=== PATIENT | male | born 1965 | race Caucasian/White ===

== ENCOUNTER 2020-12-07 19:53 | Emergency (ER) | payer BC ==
--- NOTE | 2020-12-07 20:26 | EDM.PDOC ---
ED HPI GENERAL MEDICAL PROBLEM - General Chief Complaint: Cardiovascular Problem Stated Complaint: BLOOD PRESSURE Time Seen by Provider: 12/07/20 19:56 Source of Information: Reports: Patient History Limitations: Reports: No Limitations - History of Present Illness INITIAL COMMENTS - FREE TEXT/NARRATIVE: Patient is a 55-year-old male who presents today for concerns of elevated blood pressure. Patient says at home his blood pressure is 160/110 and he spoke to his sister who also usp coming for evaluation. Patient himself states that he feels fine he has no chest pain confusion vision changes or urinary symptoms. Patient is he has appointment tomorrow to see his PMD for blood pressure checkup. Patient states blood pressure elevated a year ago but has been walking exercise and looks well controlled persistent has gone up today in the ER is 145/93. - Related Data Allergies Allergy/AdvReac Type Severity Reaction Status Date / Time No Known Allergies Allergy Verified 12/07/20 20:19 Home Meds: Home Meds . [No Known Home Meds] 12/07/20 [History] Past Medical History Cardiovascular History: Reports: Other (See Below) Other Cardiovascular History: "borderline HTN" - Infectious Disease History Infectious Disease History: Reports: None Social & Family History - Family History Family Medical History: No Pertinent Family History - Recreational Drug Use Recreational Drug Use: No ED ROS GENERAL - Review of Systems Review Of Systems: See Below Constitutional: Reports: No Symptoms HEENT: Reports: No Symptoms Respiratory: Reports: No Symptoms Cardiovascular: Reports: No Symptoms Endocrine: Reports: No Symptoms GI/Abdominal: Reports: No Symptoms : Reports: No Symptoms Musculoskeletal: Reports: No Symptoms Skin: Reports: No Symptoms Neurological: Reports: No Symptoms Psychiatric: Reports: No Symptoms Hematologic/Lymphatic: Reports: No Symptoms Immunologic: Reports: No Symptoms ED EXAM, GENERAL - Physical Exam Exam: See Below Exam Limited By: No Limitations General Appearance: Alert, WD/WN, No Apparent Distress Eye Exam: Bilateral Eye: EOMI, PERRL Neck: Normal Inspection Respiratory/Chest: No Respiratory Distress, Lungs Clear, Normal Breath Sounds Cardiovascular: Normal Peripheral Pulses, Regular Rate, Rhythm GI/Abdominal: Normal Bowel Sounds, Soft, Non-Tender Extremities: Normal Inspection, Normal Range of Motion Neurological: Alert, Oriented, CN II-XII Intact, Normal Cognition, Normal Gait Course - Vital Signs Last Recorded V/S: Last Vital Signs Temp 97.1 F 12/07/20 20:17 Pulse 70 12/07/20 20:17 Resp 16 12/07/20 20:17 BP 143/95 H 12/07/20 20:17 Pulse Ox 96 12/07/20 20:17 - Orders/Labs/Meds Orders: Active Orders 24 hr Category Date Time Status EKG 12 Lead [EKG Documentation Completion] [RC] STAT Care 12/07/20 20:23 Active - Re-Assessments/Exams Free Text/Narrative Re-Assessment/Exam: 12/07/20 20:49 Patient eloped before his EKG to be completed. We attempted to call patient patient did not case picker the phone. Again patient does have appointment tomorrow with his PMD. Departure - Departure Time of Disposition: 20:25 Disposition: Eloped 07 Condition: Good Clinical Impression: Asymptomatic hypertension Instructions: Hypertension, Adult, [id number] Referrals: Cesilia Olsen MD [Primary Care Provider] - Forms: ED Department Discharge Additional Instructions: The following information is given to patients seen in the emergency department who are being discharged to home. This information is to outline your options for follow-up care. We provide all patients seen in our emergency department with a follow-up referral. The need for follow-up, as well as the timing and circumstances, are variable depending upon the specifics of your emergency department visit. If you don't have a primary care physician on staff, we will provide you with a referral. We always advise you to contact your personal physician following an emergency department visit to inform them of the circumstance of the visit and for follow-up with them and/or the need for any referrals to a consulting specialist. The emergency department will also refer you to a specialist when appropriate. This referral assures that you have the opportunity for follow-up care with a specialist. All of these measure are taken in an effort to provide you with optimal care, which includes your follow-up. Under all circumstances we always encourage you to contact your private physician who remains a resource for coordinating your care. When calling for follow-up care, please make the office aware that this follow-up is from your recent emergency room visit. If for any reason you are refused follow-up, please contact the [facility] Emergency Department at and asked to speak to the emergency department charge nurse. Please follow up with your primary care physician. If you do not have a primary care physician, see below: [facility] [address] [place] [address] My [facility] [address] [place] [address] You are seen today for elevated blood pressure. You do not have any symptoms today. We will do EKG all normal we recommend you follow-up with your primary care physician tomorrow for blood pressure control. If you develop any chest pain vision changes headaches or any urinary complaints please return to the ED. Sepsis Event Note (ED) - Evaluation Sepsis Screening Result: No Definite Risk - Focused Exam Vital Signs: Vital Signs Temp Pulse Resp BP Pulse Ox 12/07/20 20:17 97.1 F 70 16 143/95 H 96 - My Orders Last 24 Hours: My Active Orders 12/07/20 20:23 EKG 12 Lead [EKG Documentation Completion] [RC] STAT - Assessment/Plan Last 24 Hours: My Active Orders 12/07/20 20:23 EKG 12 Lead [EKG Documentation Completion] [RC] STAT Plan: Patient is a 55-year-old male presents today for elevated blood pressure. Patient is asymptomatic. Will obtain EKG and discharge patient she has follow- up tomorrow with his primary care physician.
== END 2020-12-07 20:51 | disposition left against medical advice (07) ==
LOC: MW.ED 19:53
DX: I10 Essential (primary) hypertension (principal)
CPT/HCPCS: 99283-25